=== PATIENT | male | born 1950 | race Caucasian/White ===

== ENCOUNTER 2022-01-11 15:44 | Inpatient (IN) | payer MEDICARE, OTHER ==
[~2022-01-11] VITALS: Ht 175.3 cm; Wt 121.6 kg
[2022-01-11 21:00] VITALS: BP 127/62
[2022-01-11] MEDS ORDERED: ACETAMINOPHEN 325 MG TABLET PO PRN (21:30)
[2022-01-11] MEDS ORDERED: MELATONIN 3 MG TABLET PO PRN (21:30)
[2022-01-11] MEDS ORDERED: BENZONATATE 100 MG CAPSULE PO PRN (21:45)
[2022-01-11] MEDS: APIXABAN 5 MG TABLET PO SCH (22:44)
[2022-01-11] MEDS: PYRIDOSTIGMINE BROMIDE 180 MG PO SCH (22:44)
[2022-01-11] MEDS: LevETIRAcetam 500 MG TABLET PO SCH (22:44)
[2022-01-11] MEDS: GuaiFENesin SR 600 MG ER TABLET PO SCH (22:45)
[2022-01-11] MEDS: ETHYL ALCOHOL 62% ANTISEPTIC NASAL SANITIZER 0.6 ML AMPUL NASAL SCH (22:50)
[2022-01-12] MEDS ORDERED: PNEUMOCOCCAL VACCINE POLYVALENT 0.5 ML VIAL [PPSV23] IM. ONE (03:15)
[2022-01-12 07:37] LABS: BASOPHILS % (AUTO) 2.6 % (0.0-2.0); EOSINOPHILS % (AUTO) 4.7 % (1.0-6.0); HEMATOCRIT 39.2 % (41-53); HEMOGLOBIN 13.4 g/dL (13.5-17.5); LYMPHOCYTES # (AUTO) 1.1 K/uL (1.0-4.8); MEAN CORPUSCULAR HEMOGLOBIN 31.9 pg (26.0-34.0); MEAN CORPUSCULAR VOLUME 94 fL (80-100); MONOCYTES # (AUTO) 0.4 K/uL (0.1-1.0); MONOCYTES % (AUTO) 11.9 % (2.0-9.0); NEUTROPHILS # (AUTO) 1.7 K/uL (1.8-7.7); NEUTROPHILS % (AUTO) 49.8 % (40.0-70.0); PLATELET COUNT (AUTO) 166 K/uL (150-450); RED BLOOD CELL COUNT(AUTO) 4.18 MIL/uL (4.50-5.90); RED CELL DISTRIBUTION WIDTH 14.1 % (11.5-14.5)
[2022-01-12 07:47] LABS: ALANINE AMINOTRANSFERASE 26 U/L (12-78); ALKALINE PHOSPHATASE 96 U/L (46-116); ANION GAP 0 mmol/L (8-16); ASPARTATE AMINOTRANSFERASE 31 U/L (15-37); BILIRUBIN,TOTAL 0.5 mg/dL (0.1-1.0); CALCIUM, TOTAL 9.2 mg/dL (8.8-10.5); CARBON DIOXIDE 35 mmol/L (22-29); CHLORIDE 104 mmol/L (98-107); CREATININE 1.03 mg/dL (0.60-1.30); GLUCOSE,RANDOM 111 mg/dL (70-110); POTASSIUM 4.1 mmol/L (3.5-5.1); SODIUM SERUM 139 mmol/L (136-145); UREA NITROGEN, BLOOD 20 mg/dL (7-18)
[2022-01-12 07:52] LABS: GLOMERULAR FILTR. RATE CALC > 60 mL/min (>60)
[2022-01-12 08:30] VITALS: BP 131/67
[2022-01-12] MEDS: POTASSIUM CHLORIDE 20 MEQ ER TABLET PO SCH (08:40)
[2022-01-12] MEDS: BUMETANIDE 1 MG TABLET PO SCH (08:45)
[2022-01-12] MEDS: GuaiFENesin SR 600 MG ER TABLET PO SCH ×2 (08:47→20:18)
[2022-01-12] MEDS: FINASTERIDE 5 MG TABLET PO SCH (08:49)
[2022-01-12] MEDS: PredniSONE 5 MG TABLET PO SCH (08:49)
[2022-01-12] MEDS: MULTIVITAMINS WITH MINERALS, THERAPEUTIC TABLET PO SCH (08:49)
[2022-01-12] MEDS: LevETIRAcetam 500 MG TABLET PO SCH ×2 (08:49→20:19)
[2022-01-12] MEDS: TAMSULOSIN HCL 0.4 MG CAPSULE PO SCH (08:49)
[2022-01-12] MEDS: APIXABAN 5 MG TABLET PO SCH ×2 (08:50→20:16)
[2022-01-12] MEDS: ETHYL ALCOHOL 62% ANTISEPTIC NASAL SANITIZER 0.6 ML AMPUL NASAL SCH ×2 (08:58→20:15)
[2022-01-12] MEDS ORDERED: CALCIUM CARBONATE 500 MG CHEWABLE TABLET CHEW SCH (09:00)
[2022-01-12] MEDS ORDERED: PYRIDOSTIGMINE BROMIDE 60 MG TABLET PO SCH (09:00)
[2022-01-12] MEDS: ASPIRIN 81 MG DR TABLET PO SCH (09:03)
[2022-01-12] MEDS: PYRIDOSTIGMINE BROMIDE 60 MG TABLET PO SCH ×3 (09:14→16:44)
[2022-01-12] MEDS: OXYGEN THERAPY IH SCH ×2 (09:18→20:15)
[2022-01-12] MEDS ORDERED: GuaiFENesin/D-METHORPHAN [SUGAR-FREE] 200-20MG/10 ML SYRUP UDCUP PO PRN (16:30)
[2022-01-12] MEDS ORDERED: BENZOCAINE/MENTHOL LOZENGE PO PRN (16:30)
[2022-01-12 20:00] VITALS: BP 123/66
[2022-01-12] MEDS: CIPROFLOXACIN HCL 250 MG TABLET PO SCH (20:16)
[2022-01-12] MEDS: LACTOBAC ACID/BULG/BIFID/THERM TABLET PO SCH (20:17)
[2022-01-12] MEDS: PYRIDOSTIGMINE BROMIDE 180 MG PO SCH (20:18)
[2022-01-13 08:10] VITALS: BP 119/67
[2022-01-13] MEDS: OXYGEN THERAPY IH SCH ×2 (08:16→22:13)
[2022-01-13] MEDS: ASPIRIN 81 MG DR TABLET PO SCH (08:16)
[2022-01-13] MEDS: LevETIRAcetam 500 MG TABLET PO SCH ×2 (08:16→21:16)
[2022-01-13] MEDS: FINASTERIDE 5 MG TABLET PO SCH (08:17)
[2022-01-13] MEDS: BUMETANIDE 1 MG TABLET PO SCH (08:18)
[2022-01-13] MEDS: APIXABAN 5 MG TABLET PO SCH ×2 (08:18→21:14)
[2022-01-13] MEDS: MULTIVITAMINS WITH MINERALS, THERAPEUTIC TABLET PO SCH (08:19)
[2022-01-13] MEDS: POTASSIUM CHLORIDE 20 MEQ ER TABLET PO SCH (08:19)
[2022-01-13] MEDS: TAMSULOSIN HCL 0.4 MG CAPSULE PO SCH (08:19)
[2022-01-13] MEDS: LACTOBAC ACID/BULG/BIFID/THERM TABLET PO SCH ×2 (08:21→21:15)
[2022-01-13] MEDS: PYRIDOSTIGMINE BROMIDE 60 MG TABLET PO SCH ×3 (08:22→16:49)
[2022-01-13] MEDS: CIPROFLOXACIN HCL 250 MG TABLET PO SCH (08:25)
[2022-01-13] MEDS: PredniSONE 5 MG TABLET PO SCH (08:26)
[2022-01-13] MEDS: CALCIUM CARBONATE 500 MG CHEWABLE TABLET CHEW SCH (08:28)
[2022-01-13] MEDS: GuaiFENesin SR 600 MG ER TABLET PO SCH ×2 (08:28→21:15)
[2022-01-13] MEDS: ETHYL ALCOHOL 62% ANTISEPTIC NASAL SANITIZER 0.6 ML AMPUL NASAL SCH ×2 (08:29→22:10)
[2022-01-13 20:00] VITALS: BP 145/64
[2022-01-13] MEDS: PYRIDOSTIGMINE BROMIDE 180 MG PO SCH (21:15)
[2022-01-13] MEDS: CEFPODOXIME PROXETIL 200 MG TABLET PO SCH (21:24)
[2022-01-14] MEDS: LevETIRAcetam 500 MG TABLET PO SCH ×2 (07:25→21:40)
[2022-01-14] MEDS: POTASSIUM CHLORIDE 20 MEQ ER TABLET PO SCH (07:27)
[2022-01-14] MEDS: APIXABAN 5 MG TABLET PO SCH ×2 (07:29→21:40)
[2022-01-14] MEDS: LACTOBAC ACID/BULG/BIFID/THERM TABLET PO SCH ×2 (07:30→21:39)
[2022-01-14] MEDS: MULTIVITAMINS WITH MINERALS, THERAPEUTIC TABLET PO SCH (07:31)
[2022-01-14] MEDS: BUMETANIDE 1 MG TABLET PO SCH (07:32)
[2022-01-14] MEDS: GuaiFENesin SR 600 MG ER TABLET PO SCH ×2 (07:34→21:40)
[2022-01-14] MEDS: TAMSULOSIN HCL 0.4 MG CAPSULE PO SCH (07:34)
[2022-01-14] MEDS: ETHYL ALCOHOL 62% ANTISEPTIC NASAL SANITIZER 0.6 ML AMPUL NASAL SCH ×2 (07:35→21:38)
[2022-01-14] MEDS: CALCIUM CARBONATE 500 MG CHEWABLE TABLET CHEW SCH (07:37)
[2022-01-14] MEDS: FINASTERIDE 5 MG TABLET PO SCH (07:37)
[2022-01-14] MEDS: PYRIDOSTIGMINE BROMIDE 60 MG TABLET PO SCH ×3 (07:39→16:23)
[2022-01-14] MEDS: PredniSONE 5 MG TABLET PO SCH (07:40)
[2022-01-14] MEDS: ASPIRIN 81 MG DR TABLET PO SCH (07:40)
[2022-01-14] MEDS: CEFPODOXIME PROXETIL 200 MG TABLET PO SCH ×2 (07:41→21:41)
[2022-01-14 08:39] VITALS: BP 129/64
[2022-01-14] MEDS: OXYGEN THERAPY IH SCH ×2 (09:33→21:42)
[2022-01-14 20:00] VITALS: BP 117/64
[2022-01-14] MEDS: PYRIDOSTIGMINE BROMIDE 180 MG PO SCH (21:40)
[2022-01-15] MEDS: ASPIRIN 81 MG DR TABLET PO SCH (08:11)
[2022-01-15] MEDS: FINASTERIDE 5 MG TABLET PO SCH (08:12)
[2022-01-15] MEDS: MULTIVITAMINS WITH MINERALS, THERAPEUTIC TABLET PO SCH (08:12)
[2022-01-15] MEDS: POTASSIUM CHLORIDE 20 MEQ ER TABLET PO SCH (08:13)
[2022-01-15] MEDS: ETHYL ALCOHOL 62% ANTISEPTIC NASAL SANITIZER 0.6 ML AMPUL NASAL SCH ×2 (08:15→21:42)
[2022-01-15] MEDS: APIXABAN 5 MG TABLET PO SCH ×2 (08:15→21:42)
[2022-01-15] MEDS: TAMSULOSIN HCL 0.4 MG CAPSULE PO SCH (08:16)
[2022-01-15] MEDS: LevETIRAcetam 500 MG TABLET PO SCH ×2 (08:17→21:41)
[2022-01-15] MEDS: PredniSONE 5 MG TABLET PO SCH (08:18)
[2022-01-15] MEDS: LACTOBAC ACID/BULG/BIFID/THERM TABLET PO SCH ×2 (08:19→21:41)
[2022-01-15] MEDS: GuaiFENesin SR 600 MG ER TABLET PO SCH ×2 (08:19→21:41)
[2022-01-15] MEDS: BUMETANIDE 1 MG TABLET PO SCH (08:21)
[2022-01-15] MEDS: CALCIUM CARBONATE 500 MG CHEWABLE TABLET CHEW SCH (08:23)
[2022-01-15] MEDS: PYRIDOSTIGMINE BROMIDE 60 MG TABLET PO SCH ×3 (08:25→17:38)
[2022-01-15] MEDS: CEFPODOXIME PROXETIL 200 MG TABLET PO SCH ×2 (08:27→21:41)
[2022-01-15] MEDS: OXYGEN THERAPY IH SCH ×2 (08:29→21:42)
[2022-01-15 08:30] VITALS: BP 136/58
[2022-01-15 19:45] VITALS: BP 125/60
[2022-01-15] MEDS: PYRIDOSTIGMINE BROMIDE 180 MG PO SCH (21:41)
[2022-01-16 08:04] VITALS: BP 128/68
[2022-01-16] MEDS: CALCIUM CARBONATE 500 MG CHEWABLE TABLET CHEW SCH (08:33)
[2022-01-16] MEDS: ETHYL ALCOHOL 62% ANTISEPTIC NASAL SANITIZER 0.6 ML AMPUL NASAL SCH ×2 (08:33→20:59)
[2022-01-16] MEDS: OXYGEN THERAPY IH SCH ×2 (08:33→22:36)
[2022-01-16] MEDS: ASPIRIN 81 MG DR TABLET PO SCH (08:33)
[2022-01-16] MEDS: LACTOBAC ACID/BULG/BIFID/THERM TABLET PO SCH ×2 (08:34→20:59)
[2022-01-16] MEDS: BUMETANIDE 1 MG TABLET PO SCH (08:34)
[2022-01-16] MEDS: APIXABAN 5 MG TABLET PO SCH ×2 (08:35→21:00)
[2022-01-16] MEDS: PredniSONE 5 MG TABLET PO SCH (08:35)
[2022-01-16] MEDS: TAMSULOSIN HCL 0.4 MG CAPSULE PO SCH (08:36)
[2022-01-16] MEDS: LevETIRAcetam 500 MG TABLET PO SCH ×2 (08:36→21:01)
[2022-01-16] MEDS: POTASSIUM CHLORIDE 20 MEQ ER TABLET PO SCH (08:36)
[2022-01-16] MEDS: MULTIVITAMINS WITH MINERALS, THERAPEUTIC TABLET PO SCH (08:37)
[2022-01-16] MEDS: FINASTERIDE 5 MG TABLET PO SCH (08:37)
[2022-01-16] MEDS: GuaiFENesin SR 600 MG ER TABLET PO SCH ×2 (08:38→21:01)
[2022-01-16] MEDS: CEFPODOXIME PROXETIL 200 MG TABLET PO SCH ×2 (08:38→21:08)
[2022-01-16] MEDS: PYRIDOSTIGMINE BROMIDE 60 MG TABLET PO SCH ×3 (10:12→17:38)
[2022-01-16 20:00] VITALS: BP 117/60
[2022-01-16] MEDS: PYRIDOSTIGMINE BROMIDE 180 MG PO SCH (21:01)
[2022-01-17 06:12] LABS: BASOPHILS % (AUTO) 1.3 % (0.0-2.0); EOSINOPHILS % (AUTO) 6.5 % (1.0-6.0); HEMATOCRIT 38.8 % (41-53); HEMOGLOBIN 13.4 g/dL (13.5-17.5); LYMPHOCYTES # (AUTO) 1.2 K/uL (1.0-4.8); LYMPHOCYTES % (AUTO) 26.1 % (22.0-44.0); MEAN CORPUSCULAR HEMOGLOBIN 31.9 pg (26.0-34.0); MEAN CORPUSCULAR HGB CONC 34.4 G/dL (31.0-37.0); MEAN CORPUSCULAR VOLUME 93 fL (80-100); MONOCYTES # (AUTO) 0.5 K/uL (0.1-1.0); MONOCYTES % (AUTO) 10.9 % (2.0-9.0); NEUTROPHILS # (AUTO) 2.5 K/uL (1.8-7.7); NEUTROPHILS % (AUTO) 55.2 % (40.0-70.0); PLATELET COUNT (AUTO) 173 K/uL (150-450); RED BLOOD CELL COUNT(AUTO) 4.19 MIL/uL (4.50-5.90)
[2022-01-17 06:22] LABS: ANION GAP 3 mmol/L (8-16); CALCIUM, TOTAL 9.1 mg/dL (8.8-10.5); CARBON DIOXIDE 33 mmol/L (22-29); CHLORIDE 102 mmol/L (98-107); CREATININE 0.88 mg/dL (0.60-1.30); GLUCOSE,RANDOM 101 mg/dL (70-110); POTASSIUM 3.3 mmol/L (3.5-5.1); SODIUM SERUM 138 mmol/L (136-145); UREA NITROGEN, BLOOD 21 mg/dL (7-18)
[2022-01-17 06:30] LABS: GLOMERULAR FILTR. RATE CALC > 60 mL/min (>60)
[2022-01-17] MEDS: BUMETANIDE 1 MG TABLET PO SCH (07:27)
[2022-01-17] MEDS: CEFPODOXIME PROXETIL 200 MG TABLET PO SCH ×2 (07:28→21:14)
[2022-01-17] MEDS: ETHYL ALCOHOL 62% ANTISEPTIC NASAL SANITIZER 0.6 ML AMPUL NASAL SCH ×2 (07:29→21:15)
[2022-01-17] MEDS: CALCIUM CARBONATE 500 MG CHEWABLE TABLET CHEW SCH (07:30)
[2022-01-17] MEDS: LevETIRAcetam 500 MG TABLET PO SCH ×2 (07:31→21:14)
[2022-01-17] MEDS: APIXABAN 5 MG TABLET PO SCH ×2 (07:32→21:15)
[2022-01-17] MEDS: PYRIDOSTIGMINE BROMIDE 60 MG TABLET PO SCH ×3 (07:34→16:35)
[2022-01-17] MEDS: LACTOBAC ACID/BULG/BIFID/THERM TABLET PO SCH ×2 (07:36→21:14)
[2022-01-17] MEDS: TAMSULOSIN HCL 0.4 MG CAPSULE PO SCH (07:36)
[2022-01-17] MEDS: MULTIVITAMINS WITH MINERALS, THERAPEUTIC TABLET PO SCH (07:37)
[2022-01-17] MEDS: POTASSIUM CHLORIDE 20 MEQ ER TABLET PO SCH (07:38)
[2022-01-17] MEDS: FINASTERIDE 5 MG TABLET PO SCH (07:38)
[2022-01-17] MEDS: ASPIRIN 81 MG DR TABLET PO SCH (07:39)
[2022-01-17] MEDS: PredniSONE 5 MG TABLET PO SCH (07:40)
[2022-01-17 08:06] VITALS: BP 128/54
[2022-01-17] MEDS ORDERED: POTASSIUM CHLORIDE 20 MEQ ER TABLET PO ONE (10:15)
[2022-01-17] MEDS: OXYGEN THERAPY IH SCH ×2 (10:59→21:13)
[2022-01-17] MEDS ORDERED: POTASSIUM CHLORIDE 10 MEQ ER TABLET PO ONE (12:45)
[2022-01-17 20:10] VITALS: BP 123/57
[2022-01-17] MEDS: PYRIDOSTIGMINE BROMIDE 180 MG PO SCH (21:14)
[2022-01-18 06:33] LABS: ANION GAP 5 mmol/L (8-16); CALCIUM, TOTAL 9.1 mg/dL (8.8-10.5); CARBON DIOXIDE 32 mmol/L (22-29); CHLORIDE 102 mmol/L (98-107); CREATININE 0.88 mg/dL (0.60-1.30); GLUCOSE,RANDOM 113 mg/dL (70-110); POTASSIUM 3.9 mmol/L (3.5-5.1); SODIUM SERUM 139 mmol/L (136-145); UREA NITROGEN, BLOOD 23 mg/dL (7-18)
[2022-01-18 06:35] LABS: GLOMERULAR FILTR. RATE CALC > 60 mL/min (>60)
[2022-01-18 08:00] VITALS: BP 128/58
[2022-01-18] MEDS: ASPIRIN 81 MG DR TABLET PO SCH (08:38)
[2022-01-18] MEDS: OXYGEN THERAPY IH SCH ×2 (08:38→21:15)
[2022-01-18] MEDS: LACTOBAC ACID/BULG/BIFID/THERM TABLET PO SCH ×2 (08:39→21:10)
[2022-01-18] MEDS: BUMETANIDE 1 MG TABLET PO SCH (08:39)
[2022-01-18] MEDS: CALCIUM CARBONATE 500 MG CHEWABLE TABLET CHEW SCH (08:39)
[2022-01-18] MEDS: ETHYL ALCOHOL 62% ANTISEPTIC NASAL SANITIZER 0.6 ML AMPUL NASAL SCH ×2 (08:39→21:09)
[2022-01-18] MEDS: LevETIRAcetam 500 MG TABLET PO SCH ×2 (08:40→21:11)
[2022-01-18] MEDS: TAMSULOSIN HCL 0.4 MG CAPSULE PO SCH (08:40)
[2022-01-18] MEDS: APIXABAN 5 MG TABLET PO SCH ×2 (08:40→21:10)
[2022-01-18] MEDS: PredniSONE 5 MG TABLET PO SCH (08:40)
[2022-01-18] MEDS: POTASSIUM CHLORIDE 20 MEQ ER TABLET PO SCH (08:41)
[2022-01-18] MEDS: PYRIDOSTIGMINE BROMIDE 60 MG TABLET PO SCH ×3 (08:42→16:49)
[2022-01-18] MEDS: FINASTERIDE 5 MG TABLET PO SCH (08:42)
[2022-01-18] MEDS: MULTIVITAMINS WITH MINERALS, THERAPEUTIC TABLET PO SCH (08:42)
[2022-01-18] MEDS: CEFPODOXIME PROXETIL 200 MG TABLET PO SCH ×2 (08:43→21:11)
[2022-01-18 20:00] VITALS: BP 122/65
[2022-01-18] MEDS: PYRIDOSTIGMINE BROMIDE 180 MG PO SCH (21:10)
[2022-01-19 08:30] VITALS: BP 121/55
[2022-01-19] MEDS: LACTOBAC ACID/BULG/BIFID/THERM TABLET PO SCH ×2 (08:36→20:56)
[2022-01-19] MEDS: BUMETANIDE 1 MG TABLET PO SCH (08:41)
[2022-01-19] MEDS: POTASSIUM CHLORIDE 20 MEQ ER TABLET PO SCH (08:41)
[2022-01-19] MEDS: OXYGEN THERAPY IH SCH ×2 (08:44→21:00)
[2022-01-19] MEDS: ASPIRIN 81 MG DR TABLET PO SCH (08:44)
[2022-01-19] MEDS: LevETIRAcetam 500 MG TABLET PO SCH ×2 (08:44→20:56)
[2022-01-19] MEDS: MULTIVITAMINS WITH MINERALS, THERAPEUTIC TABLET PO SCH (08:44)
[2022-01-19] MEDS: ETHYL ALCOHOL 62% ANTISEPTIC NASAL SANITIZER 0.6 ML AMPUL NASAL SCH ×2 (08:45→20:57)
[2022-01-19] MEDS: CEFPODOXIME PROXETIL 200 MG TABLET PO SCH (08:45)
[2022-01-19] MEDS: TAMSULOSIN HCL 0.4 MG CAPSULE PO SCH (08:45)
[2022-01-19] MEDS: APIXABAN 5 MG TABLET PO SCH ×2 (08:45→20:56)
[2022-01-19] MEDS: FINASTERIDE 5 MG TABLET PO SCH (08:45)
[2022-01-19] MEDS: PredniSONE 5 MG TABLET PO SCH (08:47)
[2022-01-19] MEDS: CALCIUM CARBONATE 500 MG CHEWABLE TABLET CHEW SCH (08:47)
[2022-01-19] MEDS: PYRIDOSTIGMINE BROMIDE 60 MG TABLET PO SCH ×3 (08:48→16:44)
[2022-01-19 20:07] VITALS: BP 116/58
[2022-01-19] MEDS: PYRIDOSTIGMINE BROMIDE 180 MG PO SCH (20:56)
[2022-01-20] MEDS ORDERED: LEVE500T20 PO (04:25)
[2022-01-20] MEDS ORDERED: TAMS-13 PO (04:25)
[2022-01-20] MEDS ORDERED: CALC500T37 PO (04:25)
[2022-01-20] MEDS ORDERED: APIX5TAB PO (04:25)
[2022-01-20] MEDS ORDERED: FINA-27 PO (04:25)
[2022-01-20] MEDS ORDERED: BUME1TAB34 PO (04:25)
[2022-01-20] MEDS ORDERED: POTA-206 PO (04:25)
[2022-01-20] MEDS ORDERED: ASPI-1450 PO (04:25)
[2022-01-20] MEDS ORDERED: PRED-549 PO (04:25)
[2022-01-20] MEDS ORDERED: MULT-1239 PO (04:25)
[2022-01-20] MEDS ORDERED: PYRI60TA PO ×2 (04:25)
[2022-01-20 08:02] VITALS: BP 132/62
[2022-01-20] MEDS: ASPIRIN 81 MG DR TABLET PO SCH (08:36)
[2022-01-20] MEDS: OXYGEN THERAPY IH SCH ×2 (08:36→20:46)
[2022-01-20] MEDS: BUMETANIDE 1 MG TABLET PO SCH (08:37)
[2022-01-20] MEDS: FINASTERIDE 5 MG TABLET PO SCH (08:38)
[2022-01-20] MEDS: LACTOBAC ACID/BULG/BIFID/THERM TABLET PO SCH ×2 (08:38→20:39)
[2022-01-20] MEDS: POTASSIUM CHLORIDE 20 MEQ ER TABLET PO SCH (08:39)
[2022-01-20] MEDS: LevETIRAcetam 500 MG TABLET PO SCH ×2 (08:39→20:39)
[2022-01-20] MEDS: PredniSONE 5 MG TABLET PO SCH (08:40)
[2022-01-20] MEDS: CALCIUM CARBONATE 500 MG CHEWABLE TABLET CHEW SCH (08:40)
[2022-01-20] MEDS: TAMSULOSIN HCL 0.4 MG CAPSULE PO SCH (08:40)
[2022-01-20] MEDS: APIXABAN 5 MG TABLET PO SCH ×2 (08:40→20:39)
[2022-01-20] MEDS: MULTIVITAMINS WITH MINERALS, THERAPEUTIC TABLET PO SCH (08:40)
[2022-01-20] MEDS: PYRIDOSTIGMINE BROMIDE 60 MG TABLET PO SCH ×3 (08:41→17:05)
[2022-01-20] MEDS: ETHYL ALCOHOL 62% ANTISEPTIC NASAL SANITIZER 0.6 ML AMPUL NASAL SCH ×2 (08:41→20:39)
[2022-01-20 20:19] VITALS: BP 124/58
[2022-01-20] MEDS: PYRIDOSTIGMINE BROMIDE 180 MG PO SCH (20:39)
[2022-01-21] MEDS: POTASSIUM CHLORIDE 20 MEQ ER TABLET PO SCH (07:48)
[2022-01-21] MEDS: LACTOBAC ACID/BULG/BIFID/THERM TABLET PO SCH ×2 (07:49→21:16)
[2022-01-21] MEDS: CALCIUM CARBONATE 500 MG CHEWABLE TABLET CHEW SCH (07:49)
[2022-01-21] MEDS: ASPIRIN 81 MG DR TABLET PO SCH (07:50)
[2022-01-21] MEDS: APIXABAN 5 MG TABLET PO SCH ×2 (07:50→21:16)
[2022-01-21] MEDS: MULTIVITAMINS WITH MINERALS, THERAPEUTIC TABLET PO SCH (07:51)
[2022-01-21] MEDS: TAMSULOSIN HCL 0.4 MG CAPSULE PO SCH (07:51)
[2022-01-21] MEDS: BUMETANIDE 1 MG TABLET PO SCH (07:52)
[2022-01-21] MEDS: PredniSONE 5 MG TABLET PO SCH (07:56)
[2022-01-21] MEDS: ETHYL ALCOHOL 62% ANTISEPTIC NASAL SANITIZER 0.6 ML AMPUL NASAL SCH ×2 (07:56→21:22)
[2022-01-21] MEDS: PYRIDOSTIGMINE BROMIDE 60 MG TABLET PO SCH ×3 (07:59→17:42)
[2022-01-21] MEDS: FINASTERIDE 5 MG TABLET PO SCH (08:02)
[2022-01-21] MEDS: LevETIRAcetam 500 MG TABLET PO SCH ×2 (08:03→21:16)
[2022-01-21] MEDS: OXYGEN THERAPY IH SCH ×2 (08:04→21:24)
[2022-01-21 08:56] VITALS: BP 124/57
[2022-01-21 20:00] VITALS: BP 133/62
[2022-01-21] MEDS: PYRIDOSTIGMINE BROMIDE 180 MG PO SCH (21:16)
[2022-01-22 08:05] VITALS: BP 134/58
[2022-01-22] MEDS: ASPIRIN 81 MG DR TABLET PO SCH (09:06)
[2022-01-22] MEDS: OXYGEN THERAPY IH SCH ×2 (09:07→21:18)
[2022-01-22] MEDS: BUMETANIDE 1 MG TABLET PO SCH (09:07)
[2022-01-22] MEDS: ETHYL ALCOHOL 62% ANTISEPTIC NASAL SANITIZER 0.6 ML AMPUL NASAL SCH ×2 (09:07→21:19)
[2022-01-22] MEDS: LACTOBAC ACID/BULG/BIFID/THERM TABLET PO SCH ×2 (09:07→21:19)
[2022-01-22] MEDS: APIXABAN 5 MG TABLET PO SCH ×2 (09:07→21:19)
[2022-01-22] MEDS: TAMSULOSIN HCL 0.4 MG CAPSULE PO SCH (09:08)
[2022-01-22] MEDS: POTASSIUM CHLORIDE 20 MEQ ER TABLET PO SCH (09:08)
[2022-01-22] MEDS: LevETIRAcetam 500 MG TABLET PO SCH ×2 (09:08→21:19)
[2022-01-22] MEDS: MULTIVITAMINS WITH MINERALS, THERAPEUTIC TABLET PO SCH (09:09)
[2022-01-22] MEDS: FINASTERIDE 5 MG TABLET PO SCH (09:09)
[2022-01-22] MEDS: PSYLLIUM SEED ORANGE SF 5.8 GM/PACKET PO SCH ×2 (09:09→21:19)
[2022-01-22] MEDS: CALCIUM CARBONATE 500 MG CHEWABLE TABLET CHEW SCH (09:38)
[2022-01-22] MEDS: PredniSONE 5 MG TABLET PO SCH (09:38)
[2022-01-22] MEDS: PYRIDOSTIGMINE BROMIDE 60 MG TABLET PO SCH ×3 (09:39→16:29)
[2022-01-22 20:15] VITALS: BP 121/63
[2022-01-22] MEDS: PYRIDOSTIGMINE BROMIDE 180 MG PO SCH (21:19)
[2022-01-23 07:06] LABS: BASOPHILS % (AUTO) 0.7 % (0.0-2.0); EOSINOPHILS % (AUTO) 3.8 % (1.0-6.0); HEMATOCRIT 37.2 % (41-53); HEMOGLOBIN 12.9 g/dL (13.5-17.5); LYMPHOCYTES # (AUTO) 1.4 K/uL (1.0-4.8); LYMPHOCYTES % (AUTO) 22.5 % (22.0-44.0); MEAN CORPUSCULAR HEMOGLOBIN 32.2 pg (26.0-34.0); MEAN CORPUSCULAR HGB CONC 34.8 G/dL (31.0-37.0); MEAN CORPUSCULAR VOLUME 93 fL (80-100); MONOCYTES # (AUTO) 0.5 K/uL (0.1-1.0); MONOCYTES % (AUTO) 8.6 % (2.0-9.0); NEUTROPHILS % (AUTO) 64.4 % (40.0-70.0); PLATELET COUNT (AUTO) 129 K/uL (150-450); RED BLOOD CELL COUNT(AUTO) 4.02 MIL/uL (4.50-5.90); RED CELL DISTRIBUTION WIDTH 13.9 % (11.5-14.5)
[2022-01-23 07:15] LABS: ANION GAP 3 mmol/L (8-16); CALCIUM, TOTAL 8.8 mg/dL (8.8-10.5); CARBON DIOXIDE 35 mmol/L (22-29); CHLORIDE 100 mmol/L (98-107); CREATININE 0.95 mg/dL (0.60-1.30); GLOMERULAR FILTR. RATE CALC > 60 mL/min (>60); GLUCOSE,RANDOM 101 mg/dL (70-110); POTASSIUM 3.5 mmol/L (3.5-5.1); SODIUM SERUM 138 mmol/L (136-145); UREA NITROGEN, BLOOD 22 mg/dL (7-18)
[2022-01-23] MEDS: ETHYL ALCOHOL 62% ANTISEPTIC NASAL SANITIZER 0.6 ML AMPUL NASAL SCH ×2 (08:33→21:14)
[2022-01-23] MEDS: CALCIUM CARBONATE 500 MG CHEWABLE TABLET CHEW SCH (08:34)
[2022-01-23] MEDS: LACTOBAC ACID/BULG/BIFID/THERM TABLET PO SCH ×2 (08:34→21:14)
[2022-01-23] MEDS: BUMETANIDE 1 MG TABLET PO SCH (08:36)
[2022-01-23] MEDS: APIXABAN 5 MG TABLET PO SCH ×2 (08:37→21:14)
[2022-01-23] MEDS: POTASSIUM CHLORIDE 20 MEQ ER TABLET PO SCH (08:38)
[2022-01-23] MEDS: OXYGEN THERAPY IH SCH ×2 (08:39→20:00)
[2022-01-23] MEDS: ASPIRIN 81 MG DR TABLET PO SCH (08:39)
[2022-01-23] MEDS: MULTIVITAMINS WITH MINERALS, THERAPEUTIC TABLET PO SCH (08:40)
[2022-01-23] MEDS: PredniSONE 5 MG TABLET PO SCH (08:41)
[2022-01-23] MEDS: FINASTERIDE 5 MG TABLET PO SCH (08:41)
[2022-01-23] MEDS: PYRIDOSTIGMINE BROMIDE 60 MG TABLET PO SCH ×3 (08:42→17:11)
[2022-01-23] MEDS: LevETIRAcetam 500 MG TABLET PO SCH ×2 (08:45→21:14)
[2022-01-23] MEDS: TAMSULOSIN HCL 0.4 MG CAPSULE PO SCH (08:45)
[2022-01-23] MEDS: PSYLLIUM SEED ORANGE SF 5.8 GM/PACKET PO SCH ×2 (08:46→21:14)
[2022-01-23 09:00] VITALS: BP 129/50
[2022-01-23 20:00] VITALS: BP 126/53
[2022-01-23] MEDS: PYRIDOSTIGMINE BROMIDE 180 MG PO SCH (21:14)
[2022-01-24 08:30] VITALS: BP 129/61
[2022-01-24] MEDS: POTASSIUM CHLORIDE 20 MEQ ER TABLET PO SCH (08:48)
[2022-01-24] MEDS: OXYGEN THERAPY IH SCH ×2 (08:48→20:00)
[2022-01-24] MEDS: PYRIDOSTIGMINE BROMIDE 60 MG TABLET PO SCH ×3 (08:50→17:42)
[2022-01-24] MEDS: PredniSONE 5 MG TABLET PO SCH (08:52)
[2022-01-24] MEDS: ASPIRIN 81 MG DR TABLET PO SCH (08:54)
[2022-01-24] MEDS: CALCIUM CARBONATE 500 MG CHEWABLE TABLET CHEW SCH (08:55)
[2022-01-24] MEDS: MULTIVITAMINS WITH MINERALS, THERAPEUTIC TABLET PO SCH (08:55)
[2022-01-24] MEDS: LACTOBAC ACID/BULG/BIFID/THERM TABLET PO SCH ×2 (08:56→21:05)
[2022-01-24] MEDS: FINASTERIDE 5 MG TABLET PO SCH (08:57)
[2022-01-24] MEDS: TAMSULOSIN HCL 0.4 MG CAPSULE PO SCH (08:57)
[2022-01-24] MEDS: LevETIRAcetam 500 MG TABLET PO SCH ×2 (08:59→21:06)
[2022-01-24] MEDS: APIXABAN 5 MG TABLET PO SCH ×2 (09:00→21:05)
[2022-01-24] MEDS: BUMETANIDE 1 MG TABLET PO SCH (09:01)
[2022-01-24] MEDS: ETHYL ALCOHOL 62% ANTISEPTIC NASAL SANITIZER 0.6 ML AMPUL NASAL SCH ×2 (09:06→21:05)
[2022-01-24] MEDS: PSYLLIUM SEED ORANGE SF 5.8 GM/PACKET PO SCH ×2 (09:07→21:06)
[2022-01-24 20:17] VITALS: BP 127/60
[2022-01-24] MEDS: PYRIDOSTIGMINE BROMIDE 180 MG PO SCH (21:05)
[2022-01-25 07:40] VITALS: BP 127/68
[2022-01-25] MEDS: ASPIRIN 81 MG DR TABLET PO SCH (07:40)
[2022-01-25] MEDS: OXYGEN THERAPY IH SCH ×3 (07:40→20:00)
[2022-01-25] MEDS: ETHYL ALCOHOL 62% ANTISEPTIC NASAL SANITIZER 0.6 ML AMPUL NASAL SCH ×2 (07:41→21:03)
[2022-01-25] MEDS: LACTOBAC ACID/BULG/BIFID/THERM TABLET PO SCH ×2 (07:41→21:04)
[2022-01-25] MEDS: CALCIUM CARBONATE 500 MG CHEWABLE TABLET CHEW SCH (07:41)
[2022-01-25] MEDS: APIXABAN 5 MG TABLET PO SCH ×2 (07:42→21:04)
[2022-01-25] MEDS: BUMETANIDE 1 MG TABLET PO SCH (07:42)
[2022-01-25] MEDS: PredniSONE 5 MG TABLET PO SCH (07:42)
[2022-01-25] MEDS: LevETIRAcetam 500 MG TABLET PO SCH ×2 (07:44→21:04)
[2022-01-25] MEDS: PYRIDOSTIGMINE BROMIDE 60 MG TABLET PO SCH ×3 (07:44→16:31)
[2022-01-25] MEDS: TAMSULOSIN HCL 0.4 MG CAPSULE PO SCH (07:44)
[2022-01-25] MEDS: POTASSIUM CHLORIDE 20 MEQ ER TABLET PO SCH (07:44)
[2022-01-25] MEDS: PSYLLIUM SEED ORANGE SF 5.8 GM/PACKET PO SCH ×2 (07:44→21:04)
[2022-01-25] MEDS: FINASTERIDE 5 MG TABLET PO SCH (07:45)
[2022-01-25] MEDS: MULTIVITAMINS WITH MINERALS, THERAPEUTIC TABLET PO SCH (07:45)
[2022-01-25] MEDS ORDERED: POTASSIUM CHLORIDE 20 MEQ ER TABLET PO ONE (11:00)
[2022-01-25] MEDS ORDERED: PYRI180T PO (11:03)
[2022-01-25] MEDS ORDERED: APIX5TAB PO (11:03)
[2022-01-25] MEDS ORDERED: PRED-549 PO (11:03)
[2022-01-25] MEDS ORDERED: BUME1TAB6 PO (11:03)
[2022-01-25] MEDS ORDERED: FINA-27 PO (11:03)
[2022-01-25] MEDS ORDERED: MULT-1239 PO (11:03)
[2022-01-25] MEDS ORDERED: ASPI-1444 PO (11:03)
[2022-01-25] MEDS ORDERED: LEVE500T8 PO (11:03)
[2022-01-25] MEDS ORDERED: POTA-206 PO (11:03)
[2022-01-25] MEDS ORDERED: PYRI60TA2 PO (11:03)
[2022-01-25] MEDS ORDERED: TAMS-13 PO (11:03)
[2022-01-25 20:12] VITALS: BP 132/60
[2022-01-25] MEDS: PYRIDOSTIGMINE BROMIDE 180 MG PO SCH (21:04)
[2022-01-26 07:53] VITALS: BP 142/74
[2022-01-26] MEDS: LACTOBAC ACID/BULG/BIFID/THERM TABLET PO SCH (08:14)
[2022-01-26] MEDS: OXYGEN THERAPY IH SCH (08:14)
[2022-01-26] MEDS: PYRIDOSTIGMINE BROMIDE 60 MG TABLET PO SCH ×2 (08:15→12:27)
[2022-01-26] MEDS: LevETIRAcetam 500 MG TABLET PO SCH (08:16)
[2022-01-26] MEDS: POTASSIUM CHLORIDE 20 MEQ ER TABLET PO SCH (08:16)
[2022-01-26] MEDS: TAMSULOSIN HCL 0.4 MG CAPSULE PO SCH (08:17)
[2022-01-26] MEDS: MULTIVITAMINS WITH MINERALS, THERAPEUTIC TABLET PO SCH (08:17)
[2022-01-26] MEDS: APIXABAN 5 MG TABLET PO SCH (08:17)
[2022-01-26] MEDS: FINASTERIDE 5 MG TABLET PO SCH (08:17)
[2022-01-26] MEDS: CALCIUM CARBONATE 500 MG CHEWABLE TABLET CHEW SCH (08:18)
[2022-01-26] MEDS: BUMETANIDE 1 MG TABLET PO SCH (08:18)
[2022-01-26] MEDS: ASPIRIN 81 MG DR TABLET PO SCH (08:18)
[2022-01-26] MEDS: PredniSONE 5 MG TABLET PO SCH (08:18)
[2022-01-26] MEDS: ETHYL ALCOHOL 62% ANTISEPTIC NASAL SANITIZER 0.6 ML AMPUL NASAL SCH (08:20)
[2022-01-26] MEDS: PSYLLIUM SEED ORANGE SF 5.8 GM/PACKET PO SCH (08:20)
== END 2022-01-26 13:30 | disposition home health service (06) | DRG 291 ==
LOC: 2WR 21:01
PROVIDERS: ADMIT Physical Medicine & Rehabilitation; ATTEND Physical Medicine & Rehabilitation
DX: I11.0 Hypertensive heart disease with heart failure (principal); I50.33 Acute on chronic diastolic (congestive) heart failure; E87.1 Hypo-osmolality and hyponatremia; E44.0 Moderate protein-calorie malnutrition; I82.402 Acute embolism and thrombosis of unspecified deep veins of left lower extremity; N17.9 Acute kidney failure, unspecified; G70.00 Myasthenia gravis without (acute) exacerbation; G40.909 Epilepsy, unspecified, not intractable, without status epilepticus; F40.00 Agoraphobia, unspecified; E66.01 Morbid (severe) obesity due to excess calories; J40 Bronchitis, not specified as acute or chronic; R53.81 Other malaise; R53.1 Weakness; K46.9 Unspecified abdominal hernia without obstruction or gangrene; R06.09 Other forms of dyspnea; E86.0 Dehydration; N40.0 Benign prostatic hyperplasia without lower urinary tract symptoms; E87.70 Fluid overload, unspecified; R19.7 Diarrhea, unspecified; I49.5 Sick sinus syndrome; Z95.0 Presence of cardiac pacemaker; Z86.718 Personal history of other venous thrombosis and embolism; Z85.038 Personal history of other malignant neoplasm of large intestine; Z82.49 Family history of ischemic heart disease and other diseases of the circulatory system; Z79.01 Long term (current) use of anticoagulants; Z68.39 Body mass index [BMI] 39.0-39.9, adult; Z88.8 Allergy status to other drugs, medicaments and biological substances; Z88.5 Allergy status to narcotic agent; Z79.899 Other long term (current) drug therapy; Z79.82 Long term (current) use of aspirin
CPT/HCPCS: 71046; 80048; 80053; 84132; 85025; 87081; 94760; 97110; 97112; 97116; 97163; 97166; 97530; 97535; 99366; G0238; Q9967; 36415-L1; 36415-TC